=== PATIENT | male | born 1985 | race African-American/Black ===

== ENCOUNTER 2025-09-13 18:06 | Emergency (ER) | payer MEDICAID ==
[~2025-09-13] VITALS: Ht 180.3 cm; Wt 118.0 kg
[2025-09-13 18:09] VITALS: O2SAT 98
[2025-09-13] MEDS ORDERED: ALBU18HF2 IH (20:18)
[2025-09-13 20:29] VITALS: BP 188/121; PULSE 100; RESP 24; TEMP 37.5; O2SAT 100
== END 2025-09-13 20:40 | disposition home or self-care (01) ==
LOC: ER 18:06
DX: B34.9 Viral infection, unspecified (principal); E11.9 Type 2 diabetes mellitus without complications; I10 Essential (primary) hypertension
CPT/HCPCS: 71045; 99283